=== PATIENT | female | born 1980 | race Caucasian/White ===

== ENCOUNTER 2019-02-21 11:50 | Outpatient (REF) | payer BC, SELFPAY ==
[2019-02-24 14:29] LABS: Chlamydia Result Negative; GC Result Negative; Specimen Description CERVIX
== END 2019-02-21 12:10 ==
LOC: LBN 11:50
PROVIDERS: PCP Family Medicine; Visit Provider Nurse Practitioner Family
DX: Z11.3 Encounter for screening for infections with a predominantly sexual mode of transmission (principal)
CPT/HCPCS: 87491; 87591

== ENCOUNTER 2019-06-03 12:35 | Outpatient (REF) | payer OTHER, SELFPAY | END 2019-06-03 12:55 | LOC: LBN 12:35 | PROVIDERS: PCP Family Medicine; Visit Provider Family Medicine | DX: J02.9 Acute pharyngitis, unspecified (principal) | CPT/HCPCS: 87070 ==

== ENCOUNTER 2019-08-14 08:53 | Outpatient (CLI) | payer OTHER, SELFPAY ==
[2019-08-14 16:03] LABS: HCT 43.8 % (36.0-46.0); HGB 15.4 g/dL (12.0-15.5); Mean Corp. HGB Concentration 35.2 g/dL (32.0-36.0); Mean Corpuscular Volume 85.4 fL (80-95); Platelet Count 229 x1000/uL (130-400); RBC 5.13 m/cumm (4.00-5.20); RBC Distribution Width 12.3 % (11.7-14.6); White Blood Cell Count 5.73 k/cumm (4.4-10.8)
[2019-08-14 16:52] LABS: Iron 79 ug/dL (50-170); Total Iron Binding Capacity 321 ug/dL (250-450); Transferrin Sat 25 % (15-50)
[2019-08-14 17:02] LABS: ALT 32 U/L (14-59); AST 24 U/L (15-37); Albumin 4.4 g/dL (3.4-5.0); Alkaline Phosphatase 66 U/L (46-116); Anion Gap 9.1 mmol/L (3-11); BUN 12 mg/dL (7-18); Bilirubin, Total 0.6 mg/dL (0.2-1.0); CO2 28.9 mmol/L (21.0-32.0); CREATININE 0.81 mg/dL (0.55-1.02); Calcium 9.3 mg/dL (8.5-10.1); Chloride 106 mmol/L (98-107); Glucose 86 mg/dL (74-106); Potassium 4.1 mmol/L (3.5-5.1); Sodium 144 mmol/L (136-145); TSH (W/Ref FT4) 0.09 uIU/mL (0.36-3.74); Total Protein 7.4 g/dL (6.4-8.2)
[2019-08-14 17:20] LABS: FREE T4 1.42 ng/dL (0.76-1.46)
== END 2019-08-14 09:13 ==
PROVIDERS: PCP Family Medicine; Visit Provider Family Medicine
DX: Z00.00 Encounter for general adult medical examination without abnormal findings (principal); E03.9 Hypothyroidism, unspecified
CPT/HCPCS: 36415; 80053; 85027; 83540; 83550; 84439; 84443

== ENCOUNTER 2020-03-23 19:56 | Outpatient (REF) | payer BC, SELFPAY ==
[2020-03-23 18:05] LABS: TSH (W/Ref FT4) 0.22 uIU/mL (0.36-3.74)
[2020-03-23 18:25] LABS: FREE T4 1.28 ng/dL (0.76-1.46)
== END 2020-03-23 20:16 ==
LOC: LBN 19:56
PROVIDERS: PCP Family Medicine; Visit Provider Family Medicine
DX: E03.9 Hypothyroidism, unspecified (principal)
CPT/HCPCS: 84439; 84443

== ENCOUNTER 2020-07-12 16:22 | Outpatient (REF) | payer BC, SELFPAY ==
--- NOTE | 2020-07-12 15:30 | PAPFT_PTH ---
PATIENT: Joanna Geller LOC: [facility] U#:[id number] AGE/SX: 40/F ROOM: RE07/12/[address]: Lisa Black MD, DC : 1980 BED: DIS: 07/12/2020 SPEC #: [id number] RECD: 07/13/20 12:58 STATUS: PRABHAKAR REQ #: [id number] EUGENE: 07/12/20 15:[address]: Lisa Black DEPT: [facility] Cytology RECD BY: Karoline Stringer Tissues: 1 - CX/ENDOCX FOR PAP SMEARS Procedures: PAP THIN PREP/UVM Screening HPV DNA PROBE Comments: [id number] ([id number] [facility])
== END 2020-07-12 16:42 ==
LOC: LBN 16:22
PROVIDERS: PCP Family Medicine; Visit Provider Family Medicine
DX: Z97.5 Presence of (intrauterine) contraceptive device (principal); Z11.51 Encounter for screening for human papillomavirus (HPV); Z12.4 Encounter for screening for malignant neoplasm of cervix
CPT/HCPCS: 88142; 87624

== ENCOUNTER 2022-04-11 11:28 | Outpatient (REF) | payer OTHER, SELFPAY ==
[2022-04-11 12:13] LABS: ALT 20 U/L (14-59); AST 16 U/L (15-37); Albumin 4.3 g/dL (3.4-5.0); Alkaline Phosphatase 61 U/L (46-116); BUN 12 mg/dL (7-18); Bilirubin, Total 0.6 mg/dL (0.2-1.0); CREATININE 0.9 mg/dL (0.55-1.02); Calcium 9.4 mg/dL (8.5-10.1); Chloride 105 mmol/L (98-107); Glucose 112 mg/dL (74-106); Potassium 4.2 mmol/L (3.5-5.1); Sodium 142 mmol/L (136-145); TSH (W/Ref FT4) 0.03 uIU/mL (0.36-3.74); Total Protein 7.4 g/dL (6.4-8.2)
[2022-04-11 12:29] LABS: FREE T4 1.45 ng/dL (0.76-1.46)
== END 2022-04-11 11:29 | disposition home or self-care (01) ==
LOC: LBN 11:28
PROVIDERS: PCP Family Medicine; Visit Provider Family Medicine
DX: Z00.00 Encounter for general adult medical examination without abnormal findings (principal); E03.9 Hypothyroidism, unspecified; F41.8 Other specified anxiety disorders; F98.8 Other specified behavioral and emotional disorders with onset usually occurring in childhood and adolescence
CPT/HCPCS: 80053; 84439; 84443

== ENCOUNTER 2023-06-25 11:23 | Outpatient (REF) | payer OTHER, SELFPAY ==
[2023-06-25 10:15] LABS: ALT 29 U/L (14-59); AST 26 U/L (15-37); Albumin 4.2 g/dL (3.4-5.0); Alkaline Phosphatase 81 U/L (46-116); BUN 10 mg/dL (7-18); Bilirubin, Total 0.5 mg/dL (0.2-1.0); Calcium 9.5 mg/dL (8.5-10.1); Calculated LDL 114 mg/dL (<100); Chloride 106 mmol/L (98-107); Cholesterol 214 mg/dL (<200); Estimated GFR 72.13 (mL/min/1.73m2); Glucose 94 mg/dL (74-106); HDL Cholesterol 84 mg/dL (40-60); Sodium 142 mmol/L (136-145); TSH (W/Ref FT4) 0.18 uIU/mL (0.36-3.74); Total Protein 7.4 g/dL (6.4-8.2); Triglyceride 82 mg/dL (<150)
[2023-06-25 10:32] LABS: FREE T4 1.14 ng/dL (0.76-1.46)
== END 2023-06-25 11:24 | disposition home or self-care (01) ==
LOC: LBN 11:23
PROVIDERS: PCP Family Medicine; Visit Provider Family Medicine
DX: E03.9 Hypothyroidism, unspecified (principal); Z00.00 Encounter for general adult medical examination without abnormal findings; E11.9 Type 2 diabetes mellitus without complications
CPT/HCPCS: 80053; 80061; 83036; 84439; 84443

== ENCOUNTER 2023-12-25 19:26 | Outpatient (REF) | payer BC, OTHER, SELFPAY ==
--- NOTE | 2023-12-25 13:45 | PAPFT_PTH ---
PATIENT: Joanna Geller LOC: [facility] U#:[id number] AGE/SX: 43/F ROOM: RE12/25/[address]: Lisa Black MD, DC : 1980 BED: DIS: 12/25/2023 SPEC #: [id number] RECD: 12/26/23 13:10 STATUS: PRABHAKAR REJonas #: [id number] EUGENE: 12/25/23 13:[address]: Lisa Black [facility] Cytology RECD BY: Karoline Stringer Tissues: 1 - CX/ENDOCX FOR PAP SMEARS Procedures: PAP THIN PREP/UVM Screening HPV DNA PROBE Comments: [id number]
== END 2023-12-25 19:27 | disposition home or self-care (01) ==
LOC: LBN 19:26
PROVIDERS: PCP Family Medicine; Visit Provider Family Medicine
DX: Z12.4 Encounter for screening for malignant neoplasm of cervix (principal); B37.9 Candidiasis, unspecified
CPT/HCPCS: 88142; 87624

== ENCOUNTER 2025-01-03 09:03 | Emergency (ER) | payer BC, SELFPAY ==
[2025-01-03 09:06] VITALS: BP 137/93; PULSE 89; RESP 100; TEMP 36.8; O2SAT 100
[2025-01-03 09:09] VITALS: BP 137/93; PULSE 89; RESP 100; TEMP 36.8; O2SAT 100
--- NOTE | 2025-01-03 09:20 | ED.GENADUL_ITS ---
Discharge Plan Disposition Patient Disposition: Home Condition: Stable Discharge Details Clinical Impression: Mass of ovary Primary Care Provider: Lisa Black ED Provider: Sara Hernandez Home Meds and New Rx's Prescriptions: Continued Mirena 21 mcg/24 hr (8 yrs) 52 mg intrauterine device 1 device intrauterine ONCE Qty: 1 0RF Rx Instructions: as a single dose methylphenidate HCl 20 mg tablet 20 mg PO .noon MDD 20 plus long acting Qty: 30 0RF tirzepatide (weight loss) 12.5 mg/0.5 mL pen injector 12.5 mg subcut QWEEK Qty: 8 4RF levothyroxine 200 mcg tablet 200 mcg PO DAILY Qty: 90 4RF methylphenidate HCl [Concerta] 54 mg tablet extended release 24hr 54 mg PO DAILY MDD 54 plus short acting 20mg Qty: 30 0RF Discharge Instructions Instructions: Ovarian cancer screening, Ovarian Cancer (DC) Additional Instructions: At this time CT shows a concerning mass on most likely your ovary. Labs are unremarkable. Follow up with primary care provider in 3-5 days. Return to ED sooner if any worsening abdominal pain, fever chills, vomiting or concerns. A urgent referral was placed to [facility]. Please call them on Sunday to make an appointment. Please take Tylenol or Ibuprofen with food every 4-6 hours as needed for pain and swelling. Thank you for allowing us to care for you today. Referrals: [facility] [Outside] - 1 week (A referral form was filled out. ) Lisa Black MD, [place] [Primary Care Provider] - 3 days Discharge Data Discharge Date/Time-TO BE ENTERED AT DEPARTURE: 01/03/25 11:20 HPI General Mode of arrival: ambulatory . Date/Time Provider Initiated Documentation: 01/03/25 09:07 . Limitations to Documentation: no limitations . Information obtained by: patient, RN notes reviewed and old records reviewed . HPI Narrative: 44-year-old female presents to the ER with a chief complaint mention, constipation melena and multiple last week. She reports that she normally has a bowel movement approximately every 3 days. She did start taking MiraLAX and senna and Colace which has produced bowel movements however she still has some abdominal distention in her lower abdomen and discomfort with palpation. She recently had a abdominal series x-ray at [facility] through her PCP that showed mild to moderate constipation. So history of cholecystectomy breast biopsy thyroidectomy. Denies any problems urinating or dysuria. No vomiting positive nausea. Related Data Home Medications ?Medication ?Instructions ?Recorded ?Confirmed levonorgestrel 21 mcg/24 hr (up to 1 device intrauterine ONCE #1 ea 03/17/24 01/03/25 8 years) 52 mg intrauterine device (Mirena) methylphenidate HCl 20 mg tablet 20 mg PO .noon #30 tabs 10/23/24 01/03/25 tirzepatide (weight loss) 12.5 12.5 mg (0.5 mL) subcut QWEEK #8 mL 11/04/24 01/03/25 mg/0.5 mL subcutaneous pen injector levothyroxine 200 mcg tablet 200 mcg PO DAILY #90 tabs 11/21/24 01/03/25 methylphenidate HCl 54 mg 54 mg PO DAILY #30 tabs 12/22/24 01/03/25 tablet,extended release 24 hr (Concerta) Previous Rx's ?Medication ?Instructions ?Recorded levonorgestrel 21 mcg/24 hr (up to 1 device intrauterine ONCE #1 ea 03/17/24 8 years) 52 mg intrauterine device (Mirena) methylphenidate HCl 20 mg tablet 20 mg PO .noon #30 tabs 10/23/24 tirzepatide (weight loss) 12.5 12.5 mg (0.5 mL) subcut QWEEK #8 mL 11/04/24 mg/0.5 mL subcutaneous pen injector levothyroxine 200 mcg tablet 200 mcg PO DAILY #90 tabs 11/21/24 methylphenidate HCl 54 mg 54 mg PO DAILY #30 tabs 12/22/24 tablet,extended release 24 hr (Concerta) Allergies Allergy/AdvReac Type Severity Reaction Status Date / Time aspirin AdvReac Makes Unverified 01/03/25 09:08 heart race General Stated Complaint: Abd Prob SLY: 3 Review of Systems All systems reviewed & are unremarkable except as noted in HPI and below Gastrointestinal Gastrointestinal: Reports abdominal pain, Reports change in bowel habits, Reports constipation, Reports early satiety, Reports nausea and Denies vomiting Exam Narrative Exam Narrative: Constitutional: Alert and oriented x3. Appears stated age. Normal body habitus. Head: Normocephalic, no trauma. Eyes: Pupils PERRL, Red reflex noted, EOM's intact. Eyelids symmetrical without lesions, discharge, or swelling. ENT: Bilateral TM's WNL, External ear normal to inspection, no mastoid TTP, swelling, or erythema, Nasal turbinates WNL, no nasal discharge. Normal dentition, Posterior pharynx WNL, no exudate. Chest: RRR, Normal S1, S2, distal pulses intact. Resp: Lungs clear to auscultation bilaterally, no wheezes, rales, or rhonchi. Abdomen: Soft, mass palpated lower abdomen, no guarding normoactive bowel sounds all 4 quads. Musculoskeletal: Normal gait, Moves all 4 extremities without difficulty. Skin: No suspicious rashes or lesions. Capillary refill less than 2 sec. Neurologic: Cranial nerves II-XII intact. Alert and oriented x 3. Motor: No deficits noted. Sensory: Intact bilaterally all 4 extremities. Hematologic/Lymphatic: No ecchymosis, no lymphadenopathy. Course Vital Signs Vital signs: Vital Signs Temperature 36.8 C 01/03/25 09:06 Pulse 89 01/03/25 09:06 Respiratory Rate 100 H 01/03/25 09:06 Blood Pressure 137/93 H 01/03/25 09:06 Pulse Oximetry 100 01/03/25 09:06 Temperature 36.8 C 01/03/25 09:09 Temperature Source Temporal Artery Scan 01/03/25 09:09 Pulse 89 01/03/25 09:09 Respiratory Rate 100 H 01/03/25 09:09 Blood Pressure 137/93 H 01/03/25 09:09 Blood Pressure Position Sitting 01/03/25 09:09 Pulse Oximetry 100 01/03/25 09:09 Oxygen Delivery Method Room Air 01/03/25 09:09 Oxygen Flow Rate 0 01/03/25 09:09 Medical Decision Making 44-year-old female presents to the ER with a chief complaint mention, constipation melena and multiple last week. She reports that she normally has a bowel movement approximately every 3 days. She did start taking MiraLAX and senna and Colace which has produced bowel movements however she still has some abdominal distention in her lower abdomen and discomfort with palpation. She recently had a abdominal series x-ray at [facility] through her PCP that show ed mild to moderate constipation. So history of cholecystectomy breast biopsy thyroidectomy. Denies any problems urinating or dysuria. No vomiting positive nausea. CBC CMP lipase urinalysis and CT abdomen pelvis ordered. Discussed results of CT with patient, she verbalized understanding, all her questions were answered to the best of my ability. [facility] called to push images, will call and get request for follow up. Referral form filled out for medical oncology. Instructed patient to call to make an appointment as well. 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 Patient made hemodynamically stable alert and oriented prior to discharge. This text was generated using [employer] system, please disregard any oddities of phrase or misspellings. Medical Records Medical records reviewed: Yes I reviewed the patient's medical records. Imaging Data Radiologic Study: Imaging: CT Scan Radiologist's impression: FINDINGS: Liver: Normal. No mass. Gallbladder and biliary ducts: Cholecystectomy Pancreas: Normal. No ductal dilation. Spleen: Normal. No splenomegaly. Adrenal glands: Normal. No mass. Kidneys and ureters: Normal. No hydronephrosis. Stomach and bowel: Unremarkable. No obstruction. No mucosal thickening. Appendix: No evidence of appendicitis. Intraperitoneal space: Unremarkable. No free air. No significant fluid collection. Vasculature: Unremarkable. No abdominal aortic aneurysm. Lymph nodes: Unremarkable. No enlarged lymph nodes. Urinary bladder: Unremarkable as visualized. Reproductive: 15.5 x 8.4 x 11.7 cm Cystic and solid mass in the abdomen and pelvis displaces the uterus to the left. It has septae and nodular densities within the mass. These findings are worrisome for ovarian cancer.. IUD in the uterus Bones/joints: Unremarkable. No acute fracture. Soft tissues: Unremarkable. IMPRESSION: 15.5 x 8.4 x 11.7 cm Cystic and solid mass in the abdomen and pelvis displaces the uterus to the left. It has septae and nodular densities within the mass. These findings are worrisome for ovarian cancer.. Lab Data Lab results reviewed: Yes I reviewed the patient's lab results. Labs: Laboratory Tests Range/Units 01/03/25 01/03/25 09:14 09:30 WBC (4.4-10.8) 10^3/uL 8.41 RBC (3.93-5.22) 10^6/uL 4.73 Hgb (11.2-15.7) g/dL 14.2 Hct (36.0-46.0) % 41.1 MCV (80-95) fL 87 MCH (27.0-33.0) pg 30.0 MCHC (32.0-36.0) % 34.5 RDW (11.7-14.6) % 12.2 Plt Count (130-400) 10^3/uL 276 MPV (8.0-11.0) fL 9.5 Immature Gran % % 0.4 Neutrophils % % 79.5 Lymphocytes % % 13.9 Monocytes % % 4.5 Eosinophils % % 1.2 Basophils % % 0.5 Nucleated RBC % (0.0-0.3) % 0.0 Absolute Neutrophils (1.2-6.7) 10^3/uL 6.69 Absolute Lymphocytes (1.2-3.4) 10^3/uL 1.17 L Absolute Monocytes (0.1-0.8) 10^3/uL 0.38 Absolute Eosinophils (0.0-0.7) 10^3/uL 0.10 Absolute Basophils (0.0-0.2) 10^3/uL 0.04 Sodium (136-145) mmol/L 139 Potassium (3.5-5.1) mmol/L 3.8 Chloride (98-107) mmol/L 106 Carbon Dioxide (21.0-32.0) mmol/L 26.3 Anion Gap (3-11) mmol/L 6.7 BUN (7-18) mg/dL 8 Creatinine (0.55-1.02) mg/dL 0.9 Est GFR (CKD-EPI 2020) (mL/min/1.73m2) 81.35 Glucose (74-106) mg/dL 94 Calcium (8.5-10.1) mg/dL 8.9 Total Bilirubin (0.2-1.0) mg/dL 0.4 AST (15-37) U/L 22 ALT (14-59) U/L 14 Alkaline Phosphatase (46-116) U/L 77 Total Protein (6.4-8.2) g/dL 7.3 Albumin (3.4-5.0) g/dL 3.6 Lipase (<78) U/L 46 Urine Color (Yellow) Yellow Urine Clarity (Clear) Clear Urine pH (5-8) 6.0 Ur Specific [place] (1.005-1.025) <= 1.005 Urine Protein (Neg-Trace) mg/dL Negative Urine Ketones (Negative) mg/dL Negative Urine Blood (Negative) Negative Urine Nitrite (Negative) Negative Urine Bilirubin (Negative) Negative Urine Urobilinogen (Up to 0.2) mg/dL 0.2 Ur Leukocyte Esterase (Negative) Negative Urine Glucose (Negative) mg/dL Negative Quality:SDOH Health Related Social Needs: No Data to Display PFSH All Active Problems (Updated 01/03/25 @ 11:11 by Sara Hernandez NP) Mass of ovary (Acute) Constipation (Acute) Vaginal candidiasis (Acute) BMI 34.0-34.9,adult (Acute) ADD (attention deficit disorder) (Acute) Annual physical exam (Acute) IUD surveillance (Acute) Anxiety (Acute 01/17/16) Fibrocystic disease of breast (Acute) Hypothyroidism (Acute 11/04/12) S/P thyroidectomy for goiter Medical History History of chicken pox (~12/26/82) HAD DISEASE 12/26/82, VARIVAX VACCINATION GIVEN 03/29/01 Surgical History Status post breast biopsy Status post cholecystectomy Status post thyroidectomy THYROIDECTOMY follicular adenoma Cholecystectomy Biopsy of breast X 2 -NEG Family History Mother No problems noted. Father , age 53 Glioblastoma Maternal Grandmother Diabetes Essential hypertension Depression Heart disease Sister No problems noted. Brother No problems noted. Maternal Grandfather , in his 70s Neoplasm BLADDER Bladder cancer Paternal Grandfather Essential hypertension Heart disease Paternal Grandmother , in her 60s Heart disease Brother No problems noted. Brother No problems noted. Daughter No problems noted. Daughter No problems noted. Social History Smoking/Tobacco Use Status: Never Smoking risk assessment performed?: Yes Alcohol Intake: current Alcohol Intake frequency: a few times a month Drug use: Never Substance use type: does not use Caregiver/Support person: No Household members: significant other and children Housing: house Communication Needs: None Do you need help understanding health information?: Rarely Pets and animals: Yes Pets and animals: dog(s) Sexually active: Yes Do you think of yourself as: straight/heterosexual Current gender identity: female What is your relationship status?: living with partner How often do you talk on the phone with friends or family?: three or more times per week How often do you get together with friends or relatives?: once per week How often do you attend gnosticism or christianity services?: 1-3 times per year Do you belong to any clubs or organized social groups?: yes Panel score (0-1 are the most socially isolated patients): 3 What type of physical activity do you participate in: walking, weight lifting and running Duration: 60-90 minutes/day Frequency: 3-4 times per week Philly/Scientology: Baptism Special philly needs: No Seatbelt use: always Helmet use: No Drive intox or ride w/intox car driver: No Female Reproductive History Menstrual control method: other (Mirena [facility]ered [facility] Lot#: [id number]; Exp 03/2026) PAWSS Have you Been Recently Intoxicated or Drunk Within the Last 30 days?: No Have you Ever Experienced Previous Episodes of Alcohol Withdrawal?: No Have you ever Experienced Withdrawal Seizures?: No Have you ever Experienced Delirium Tremens(DT)s?: No Have you ever undergone Alcohol Rehabilitation Treatment (i.e, inpt ot outpatient treatment programs)?: No Have you ever Experienced Blackouts?: No Have you ever Combined Alcohol with other Downers within the last 90 days?: No Have you ever Combined Alcohol with any other Substance of Abuse during the last 90 days?: No Positive Blood Alcohol level on Presentation? [PCS.BAL]: No Evidence of Increased Autonomic Activity (i.e. HR>120, tremor, sweating, agitation, nausea)?: No Result: 0
[2025-01-03 09:37] LABS: Abs Immature Grans 0.03 10^3/uL (0.0-0.06); Absolute Basophil Count 0.04 10^3/uL (0.0-0.2); Absolute Lymphocyte Count 1.17 10^3/uL (1.2-3.4); Absolute Monocyte Count 0.38 10^3/uL (0.1-0.8); Absolute Neutrophil Count 6.69 10^3/uL (1.2-6.7); Basophils % 0.5 %; Eosinophils % 1.2 %; HCT 41.1 % (36.0-46.0); HGB 14.2 g/dL (11.2-15.7); Immature Grans % 0.4 %; Lymphocytes % 13.9 %; MCHC 34.5 % (32.0-36.0); MCV 87 fL (80-95); MPV 9.5 fL (8.0-11.0); Monocytes % 4.5 %; Neutrophils % 79.5 %; Platelet Count 276 10^3/uL (130-400); RBC 4.73 10^6/uL (3.93-5.22); RDW 12.2 % (11.7-14.6); WBC 8.41 10^3/uL (4.4-10.8)
[2025-01-03 09:40] LABS: Bilirubin Negative (Negative); Blood Negative (Negative); Clarity Clear (Clear); Glucose Negative (Negative); Ketones Negative (Negative); Leukocyte Esterase Negative (Negative); Nitrite Negative (Negative); Specific Gravity <= 1.005 (1.005-1.025); Urobilinogen 0.2 mg/dL (Up to 0.2)
[2025-01-03 09:59] LABS: ALT 14 U/L (14-59); AST 22 U/L (15-37); Albumin 3.6 g/dL (3.4-5.0); Alkaline Phosphatase 77 U/L (46-116); Anion Gap 6.7 mmol/L (3-11); BUN 8 mg/dL (7-18); Bilirubin, Total 0.4 mg/dL (0.2-1.0); CO2 26.3 mmol/L (21.0-32.0); CREATININE 0.9 mg/dL (0.55-1.02); Calcium 8.9 mg/dL (8.5-10.1); Chloride 106 mmol/L (98-107); Estimated GFR 81.35 (mL/min/1.73m2); Glucose 94 mg/dL (74-106); Lipase 46 U/L (<78); Potassium 3.8 mmol/L (3.5-5.1); Sodium 139 mmol/L (136-145); Total Protein 7.3 g/dL (6.4-8.2)
[2025-01-03] MEDS: Omnipaque 350 MG/ML 100 ML BTL IJ (10:34)
[2025-01-03] MEDS: Normal Saline - Diluent 50 ML VIAL IJ (10:36)
--- NOTE | 2025-01-03 10:45 | DI.CT_ITS ---
Exam(s) CT ABDOMEN PELVIS W EXAM: CT ABDOMEN PELVIS W CLINICAL HISTORY: Abdominal distention, constipation. TECHNIQUE: Imaging Protocol: Axial computed tomography images with coronal and sagittal reformatted images were created and reviewed CONTRAST MATERIAL: Intravenous: Omnipaque-350 75cc Oral: None COMPARISON: No exams were available for comparison FINDINGS: VISUALIZED LUNG BASES: No nodules nor pleural effusions evident. ABDOMEN: LIVER: There are no focal hepatic lesions evident. No dilated intrahepatic ducts. GALLBLADDER/BILIARY: The gallbladder surgically absent. CBD is not dilated. PANCREAS: No evidence of pancreatic mass nor dilatation of the pancreatic duct. SPLEEN: Spleen is not enlarged. No obvious intrasplenic lesions. Splenic and portal veins are paten t. ADRENALS: There are no significant adrenal masses. KIDNEYS:No cysts evident. No solid renal masses. No calculi nor hydronephrosis.. ABDOMINAL AORTA: Abdominal aorta is not enlarged. LYMPH NODES:There is no retroperitoneal nor paraaortic adenopathy. ABDOMINAL WALL: No evidence of significant anterior abdominal wall nor inguinal hernia. GI: There is no evidence of bowel obstruction, free air, nor abscess. PELVIS: GI: No evidence of appendicitis.No evidence of sigmoid diverticulitis. LYMPH NODES: There is no intrapelvic nor inguinal adenopathy. REPRODUCTIVE: There is a large ominous mass in the pelvis deviating the uterus towards the left side, this mass being both solid and cystic and containing internal septae and nodular densities measurin g approximately 16 x 9 x 12 cm. Suspicious for right ovarian malignancy. There is a small amount of ascites adjacent to the right side of this mass in the pelvis. This mass deviates uterus towards th e opposite-left side. There is an IUD in the endometrial canal noted. The left ovary is identified and appears unremarkable. URINARY BLADDER: No calculi nor obvious masses evident OSSEOUS: No fractures and no significant osseous lesions. IMPRESSION: 1. There is a large ominous cystic and solid mass in the pelvis measuring approximately 16 x 9 x 12 c m and suspicious for right ovarian malignancy. There is a small amount of free fluid in the pelvis l ateral to this mass. The opposite-left ovary appears unremarkable. 2. There is an IUD in the uterus. Uterus is deviated towards the left side by this large mass. First read by [facility]. RADIATION DOSE DELIVERED: 592.78mGy.cm Total DLP DATA REPOSITORY: All CT scans at this facility are submitted to the National Radiology Data Registry (NRDR) Dose Index Registry (DIR) with the [employer] (ACR). RADIATION OPTIMIZATION: All CT scans at this facility use at least one of these dose optimization te chniques: automated exposure control; mA and/or kV adjustment per patient size (includes targeted exa ms where dose is matched to clinical indication); or iterative reconstruction.
[2025-01-03 10:46] VITALS: BP 128/76; PULSE 76; RESP 14; O2SAT 100
--- NOTE | 2025-01-03 10:56 | DI.VRAD_ITS ---
PROCEDURE INFORMATION: Exam: CT Abdomen And Pelvis With Contrast Exam date and time: 01/03/2025 10:31 AM Age: 44 years old Clinical indication: Constipation and other: Abdominal distension TECHNIQUE: Imaging protocol: Computed tomography of the abdomen and pelvis with contrast. Radiation optimization: All CT scans at this facility use at least one of these dose optimization techniques: automated exposure control; mA and/or kV adjustment per patient size (includes targeted exams where dose is matched to clinical indication); or iterative reconstruction. Contrast material: OMNIPAQUE 350; Contrast volume: 75 ml; Contrast route: INTRAVENOUS (IV); COMPARISON: No relevant prior studies available. FINDINGS: Liver: Normal. No mass. Gallbladder and biliary ducts: Cholecystectomy Pancreas: Normal. No ductal dilation. Spleen: Normal. No splenomegaly. Adrenal glands: Normal. No mass. Kidneys and ureters: Normal. No hydronephrosis. Stomach and bowel: Unremarkable. No obstruction. No mucosal thickening. Appendix: No evidence of appendicitis. Intraperitoneal space: Unremarkable. No free air. No significant fluid collection. Vasculature: Unremarkable. No abdominal aortic aneurysm. Lymph nodes: Unremarkable. No enlarged lymph nodes. Urinary bladder: Unremarkable as visualized. Reproductive: 15.5 x 8.4 x 11.7 cm Cystic and solid mass in the abdomen and pelvis displaces the uterus to the left. It has septae and nodular densities within the mass. These findings are worrisome for ovarian cancer.. IUD in the uterus Bones/joints: Unremarkable. No acute fracture. Soft tissues: Unremarkable. IMPRESSION: 15.5 x 8.4 x 11.7 cm Cystic and solid mass in the abdomen and pelvis displaces the uterus to the left. It has septae and nodular densities within the mass. These findings are worrisome for ovarian cancer.. THIS REPORT CONTAINS FINDINGS THAT MAY BE CRITICAL TO PATIENT CARE. The findings were verbally communicated via telephone conference with SHANNAN LO at 10:55 AM EDT on 01/03/2025. The findings were acknowledged and understood. Dictated and Authenticated by: Joseph Nix MD. Orderin Mary Ruiz MD
[2025-01-04 19:59] LABS: Lab Add On Test DONE
[2025-01-06 09:36] LABS: CA 125 18 U/mL (<30)
== END 2025-01-03 11:20 | disposition home or self-care (01) ==
LOC: ER 11:23
PROVIDERS: Emergency Provider Registered Nurse Emergency; PCP Family Medicine
DX: N83.8 Other noninflammatory disorders of ovary, fallopian tube and broad ligament (principal); R10.30 Lower abdominal pain, unspecified; K59.00 Constipation, unspecified
CPT/HCPCS: 99284; 99285; 81025; 36415; 80053; 83690; 86304; 74177; 81003; 85025; J3490

== ENCOUNTER 2025-01-22 18:57 | Outpatient (REF) | payer BC, SELFPAY ==
[2025-01-22 17:47] LABS: Bilirubin Negative (Negative); Blood Small (Negative); Clarity Clear (Clear); Glucose Negative (Negative); Ketones Negative (Negative); Leukocyte Esterase Negative (Negative); Nitrite Negative (Negative); Specific Gravity >= 1.030 (1.005-1.025); Urobilinogen 0.2 mg/dL (Up to 0.2); pH 5.5 (5-8)
[2025-01-22 17:54] LABS: Epithelial Cells Rare HPF (Negative); RBC 0-2 HPF (0-2); WBC 0-2 HPF (0-5)
[2025-01-22 17:55] LABS: Bacteria Few HPF (Negative); C & S Indicated? No; Casts Negative LPF (Negative); Crystals Negative HPF (Negative); Mucus Negative (Negative)
== END 2025-01-22 18:58 | disposition home or self-care (01) ==
LOC: LBN 18:57
PROVIDERS: PCP Family Medicine; Visit Provider Obstetrics & Gynecology
DX: R30.9 Painful micturition, unspecified (principal)
CPT/HCPCS: 81003; 81015

== ENCOUNTER 2025-03-31 11:06 | Outpatient (CLI) | payer BC, SELFPAY ==
[2025-04-06 14:50] LABS: Inhibin A, Tumor Marker <5.0 pg/mL
== END 2025-03-31 11:07 | disposition home or self-care (01) ==
LOC: LBO 11:06
PROVIDERS: PCP Family Medicine; Visit Provider Nurse Practitioner Women's Health
DX: D39.10 Neoplasm of uncertain behavior of unspecified ovary (principal)
CPT/HCPCS: 36415; 86336

== ENCOUNTER 2025-04-09 11:56 | Outpatient (CLI) | payer BC, SELFPAY ==
[2025-04-09 12:27] LABS: Abs Immature Grans 0.01 10^3/uL (0.0-0.06); HCT 43.8 % (36.0-46.0); HGB 15.4 g/dL (11.2-15.7); Immature Grans % 0.2 %; MCH 29.8 pg (27.0-33.0); MCHC 35.2 % (32.0-36.0); MCV 85 fL (80-95); MPV 9.8 fL (8.0-11.0); Platelet Count 289 10^3/uL (130-400); RBC 5.17 10^6/uL (3.93-5.22); RDW 12.0 % (11.7-14.6); RDW-SD 36.4 fL; WBC 5.55 10^3/uL (4.4-10.8)
[2025-04-09 15:29] LABS: ALT 26 U/L (14-59); AST 18 U/L (15-37); Albumin 4.3 g/dL (3.4-5.0); Alkaline Phosphatase 61 U/L (46-116); Anion Gap 8.1 mmol/L (3-11); BUN 9 mg/dL (7-18); Bilirubin, Total 0.4 mg/dL (0.2-1.0); CO2 30.9 mmol/L (21.0-32.0); Calcium 9.8 mg/dL (8.5-10.1); Chloride 104 mmol/L (98-107); Estimated GFR 81.35 (mL/min/1.73m2); Glucose 93 mg/dL (74-106); Potassium 3.7 mmol/L (3.5-5.1); Sodium 143 mmol/L (136-145); Total Protein 7.6 g/dL (6.4-8.2)
== END 2025-04-09 11:57 | disposition home or self-care (01) ==
LOC: LBO 11:56
PROVIDERS: PCP Family Medicine; Visit Provider Physician Assistant
DX: D39.10 Neoplasm of uncertain behavior of unspecified ovary (principal)
CPT/HCPCS: 36415; 80053; 85025

== ENCOUNTER 2025-04-29 12:55 | Outpatient (CLI) | payer BC, SELFPAY ==
[2025-04-29 11:33] LABS: Abs Immature Grans 0.01 10^3/uL (0.0-0.06); HCT 44.8 % (36.0-46.0); HGB 15.5 g/dL (11.2-15.7); Immature Grans % 0.2 %; MCH 29.4 pg (27.0-33.0); MCHC 34.6 % (32.0-36.0); MCV 85 fL (80-95); MPV 9.4 fL (8.0-11.0); Platelet Count 288 10^3/uL (130-400); RBC 5.28 10^6/uL (3.93-5.22); RDW 12.5 % (11.7-14.6); RDW-SD 37.8 fL; WBC 5.29 10^3/uL (4.4-10.8)
[2025-04-29 12:25] LABS: ALT 29 U/L (14-59); AST 18 U/L (15-37); Albumin 4.3 g/dL (3.4-5.0); Alkaline Phosphatase 78 U/L (46-116); Anion Gap 4.6 mmol/L (3-11); BUN 11 mg/dL (7-18); Bilirubin, Total 0.4 mg/dL (0.2-1.0); CO2 31.4 mmol/L (21.0-32.0); Calcium 9.8 mg/dL (8.5-10.1); Chloride 105 mmol/L (98-107); Estimated GFR 81.35 (mL/min/1.73m2); Glucose 100 mg/dL (74-106); Potassium 4.1 mmol/L (3.5-5.1); Sodium 141 mmol/L (136-145); Total Protein 7.8 g/dL (6.4-8.2)
[2025-04-29 12:35] LABS: TSH (W/Ref FT4) 0.76 uIU/mL (0.36-3.74)
[2025-04-29 13:14] LABS: Vitamin D 25 Total 24 ng/mL (30-100)
== END 2025-04-29 12:56 | disposition home or self-care (01) ==
LOC: LBO 12:55
PROVIDERS: Physician Assistant; PCP Family Medicine; Visit Provider Family Medicine
DX: M81.0 Age-related osteoporosis without current pathological fracture (principal)
CPT/HCPCS: 36415; 80053; 82306; 83970; 84100; 84443; 85025

== ENCOUNTER 2025-06-09 03:20 | Outpatient (CLI) | payer BC, SELFPAY ==
[2025-06-09 07:34] LABS: Abs Immature Grans 0.02 10^3/uL (0.0-0.06); HCT 38.5 % (36.0-46.0); HGB 13.6 g/dL (11.2-15.7); Immature Grans % 0.6 %; MCH 30.5 pg (27.0-33.0); MCHC 35.3 % (32.0-36.0); MCV 86 fL (80-95); MPV 9.0 fL (8.0-11.0); Platelet Count 235 10^3/uL (130-400); RBC 4.46 10^6/uL (3.93-5.22); RDW 14.6 % (11.7-14.6); RDW-SD 46.1 fL; WBC 3.53 10^3/uL (4.4-10.8)
[2025-06-09 08:00] LABS: ALT 32 U/L (14-59); AST 21 U/L (15-37); Albumin 3.9 g/dL (3.4-5.0); Alkaline Phosphatase 80 U/L (46-116); Anion Gap 10.6 mmol/L (3-11); BUN 14 mg/dL (7-18); Bilirubin, Total 0.4 mg/dL (0.2-1.0); CO2 27.4 mmol/L (21.0-32.0); Calcium 9.2 mg/dL (8.5-10.1); Chloride 105 mmol/L (98-107); Estimated GFR 80.84 (mL/min/1.73m2); Glucose 95 mg/dL (74-106); Potassium 4.2 mmol/L (3.5-5.1); Sodium 143 mmol/L (136-145); Total Protein 7.0 g/dL (6.4-8.2)
[2025-06-09 10:29] LABS: Lab Add On Test DONE
[2025-06-10 10:23] LABS: Lyme Ab w Rflx to Lyme Confirm Negative (Negative)
[2025-06-11 22:54] LABS: B. miyamotoi PCR Negative (Negative); Babesia divergens/MO-1 Negative (Negative); Ehrlichia muris eauclairensis Negative (Negative)
== END 2025-06-09 03:21 | disposition home or self-care (01) ==
LOC: LBO 03:20
PROVIDERS: PCP Family Medicine; Visit Provider Physician Assistant
DX: R21 Rash and other nonspecific skin eruption (principal)
CPT/HCPCS: 36415; 80053; 87798; 85025; 86618

== ENCOUNTER 2025-06-16 10:37 | Outpatient (CLI) | payer BC, SELFPAY ==
[2025-06-16 11:47] LABS: Abs Immature Grans 0.02 10^3/uL (0.0-0.06); HCT 40.4 % (36.0-46.0); HGB 14.3 g/dL (11.2-15.7); Immature Grans % 0.2 %; MCH 30.4 pg (27.0-33.0); MCHC 35.4 % (32.0-36.0); MCV 86 fL (80-95); MPV 9.3 fL (8.0-11.0); Platelet Count 263 10^3/uL (130-400); RBC 4.71 10^6/uL (3.93-5.22); RDW 13.6 % (11.7-14.6); RDW-SD 42.6 fL; WBC 9.53 10^3/uL (4.4-10.8)
[2025-06-16 11:54] LABS: Glucose Negative (Negative)
[2025-06-16 12:05] LABS: C & S Indicated? Yes
[2025-06-16 12:59] LABS: ALT 36 U/L (14-59); AST 18 U/L (15-37); Albumin 4.2 g/dL (3.4-5.0); Alkaline Phosphatase 78 U/L (46-116); Anion Gap 8.8 mmol/L (3-11); BUN 10 mg/dL (7-18); Bilirubin, Total 0.4 mg/dL (0.2-1.0); CO2 29.2 mmol/L (21.0-32.0); Calcium 9.4 mg/dL (8.5-10.1); Chloride 100 mmol/L (98-107); Estimated GFR 93.12 (mL/min/1.73m2); Glucose 94 mg/dL (74-106); Potassium 3.5 mmol/L (3.5-5.1); Sodium 138 mmol/L (136-145); Total Protein 8.0 g/dL (6.4-8.2)
== END 2025-06-16 10:38 | disposition home or self-care (01) ==
LOC: LBO 10:38
PROVIDERS: PCP Family Medicine; Visit Provider Family Medicine
DX: R30.0 Dysuria (principal); C56.9 Malignant neoplasm of unspecified ovary; I10 Essential (primary) hypertension
CPT/HCPCS: 36415; 80053; 87077; 81003; 81015; 85025; 87086; 87186